=== PATIENT | female | born 1985 | race Caucasian/White ===

== ENCOUNTER 2018-01-13 15:34 | Emergency (ER) | payer MEDICAID ==
[~2018-01-13] VITALS: Ht 157.5 cm; Wt 138.6 kg
[~2018-01-13 15:34] MED LIST: CLIN300C85 PO
[2018-01-13 15:39] VITALS: BP 165/89
== END 2018-01-13 16:18 | disposition home or self-care (01) ==
LOC: ER 15:35
DX: O26.892 Other specified pregnancy related conditions, second trimester (principal); F15.10 Other stimulant abuse, uncomplicated; F11.10 Opioid abuse, uncomplicated; I10 Essential (primary) hypertension; G89.29 Other chronic pain; F17.200 Nicotine dependence, unspecified, uncomplicated; F12.90 Cannabis use, unspecified, uncomplicated; Z88.8 Allergy status to other drugs, medicaments and biological substances; Z79.2 Long term (current) use of antibiotics; Z3A.22 22 weeks gestation of pregnancy
CPT/HCPCS: 99281

== ENCOUNTER 2018-04-24 14:44 | Emergency (ER) | payer MEDICAID ==
[~2018-04-24] VITALS: Ht 157.5 cm; Wt 149.0 kg
[2018-04-24 14:58] VITALS: BP 173/104
[2018-04-24] MEDS ORDERED: BUPIVAcaine 0.5% W/EPI /PF 30ml vial IJ ONE (15:15)
[2018-04-24] MEDS ORDERED: amoxicillin 250mg capsule PO ONE (15:45)
[2018-04-24] MEDS ORDERED: AMOX-101 PO (15:46)
== END 2018-04-24 15:53 | disposition home or self-care (01) ==
LOC: ER 14:45
DX: O99.613 Diseases of the digestive system complicating pregnancy, third trimester (principal); S02.5XXD Fracture of tooth (traumatic), subsequent encounter for fracture with routine healing; K04.7 Periapical abscess without sinus; I10 Essential (primary) hypertension; G89.29 Other chronic pain; F12.90 Cannabis use, unspecified, uncomplicated; F15.90 Other stimulant use, unspecified, uncomplicated; F11.90 Opioid use, unspecified, uncomplicated; Z98.890 Other specified postprocedural states; Z88.8 Allergy status to other drugs, medicaments and biological substances; Z79.2 Long term (current) use of antibiotics; Z3A.36 36 weeks gestation of pregnancy; X58.XXXD Exposure to other specified factors, subsequent encounter
CPT/HCPCS: 64402; 99284

== ENCOUNTER 2022-09-12 19:37 | Emergency (ER) | payer MEDICAID ==
[~2022-09-12] VITALS: Ht 160 cm; Wt 178.6 kg
[~2022-09-12 19:37] MED LIST changes: +CLIN-97 PO; -CLIN300C85 PO
[2022-09-12 19:54] LABS: BASOPHILS # (AUTO) 0.1 X10'3 (0-0.2); BASOPHILS % (AUTO) 0.8 % (0-1); EOSINOPHILS # (AUTO) 0.1 X10'3 (0-0.9); HEMATOCRIT 40.5 % (35.0-45.0); HEMOGLOBIN 13.3 g/dl (12.0-16.0); LYMPHOCYTES # (AUTO) 4.2 X10'3 (1.1-4.8); LYMPHOCYTES % (AUTO) 37.9 % (21-51); MEAN CORPUSCULAR HEMOGLOBIN 26.5 PG (27.0-31.0); MEAN CORPUSCULAR HGB CONC 32.7 g/dL (33.0-36.5); MEAN CORPUSCULAR VOLUME 81.1 FL (78-98); MONOCYTES # (AUTO) 0.7 X10'3 (0-0.9); MONOCYTES % (AUTO) 6.3 % (2-12); NEUTROPHILS # (AUTO) 5.9 X10'3 (1.8-7.7); PLATELET COUNT 252 X10'3 (140-440); RED CELL DISTRIBUTION WIDTH 12.3 % (11.5-14.5)
[2022-09-12 20:07] LABS: ALANINE AMINOTRANSFERASE 55 U/L (12-78); ALBUMIN 3.7 G/DL (3.4-5.0); ALBUMIN/GLOBULIN RATIO 0.8 (1.1-1.5); ALKALINE PHOSPHATASE 77 IU/L (46-116); ANION GAP 5 (8-16); ASPARTATE AMINO TRANSFERASE 38 U/L (10-37); BILIRUBIN,TOTAL 0.4 MG/DL (0.1-1.0); BLOOD UREA NITROGEN 15 MG/DL (7-18); BUN/CREATININE RATIO 18.1 (10.0-20.0); CALCIUM 9.3 MG/DL (8.5-10.1); CHLORIDE 103 MMOL/L (99-107); CREATININE 0.83 MG/DL (0.40-0.90); GLUCOSE 105 MG/DL (70-104); POTASSIUM 4.1 MMOL/L (3.5-5.1); SODIUM 138 MMOL/L (135-145); TOTAL CARBON DIOXIDE 30.5 MMOL/L (24-32); TOTAL PROTEIN 8.5 G/DL (6.4-8.2); eGFR 77 ML/MIN
[2022-09-12 20:50] LABS: CLARITY,URINE SLIGHTLY CLOUDY (Clear); COLOR,URINE YELLOW (Yellow); GLUCOSE, URINE NEGATIVE (Neg); KETONES,URINE NEGATIVE (Neg); LEUKOCYTE ESTERASE ,URINE SMALL (Neg); NITRITES, URINE POSITIVE (Neg); OCCULT BLOOD,URINE MODERATE (Neg); PROTEIN,URINE 100 mg/dl (Neg); URINE HCG NEGATIVE (NEG); UROBILINOGEN,URINE 0.2 E.U/dL (0.2-1.0)
[2022-09-12 20:56] LABS: UA COLLECTION TYPE CLN CATCH MIDSTREAM
[2022-09-12 21:02] LABS: RBC,URINE 20-50 /HPF (0-2); WBC,URINE TNTC /HPF (0-4)
[2022-09-12 21:03] LABS: BACTERIA,URINE 2+ /HPF (Neg); MUCUS STRANDS FEW /LPF (Neg); SQUAMOUS EPITHELIAL CELL,UR FEW /LPF (FEW); TRANSITIONAL EPI CELLS,URINE FEW /HPF; WBC CLUMPS,URINE FEW /HPF (NEGATIVE)
[2022-09-12] MEDS ORDERED: cephalexin 500mg capsule PO ONE (21:15)
[2022-09-12] MEDS ORDERED: CEPH250T PO (21:29)
[2022-09-12 21:34] VITALS: BP 140/85
== END 2022-09-12 21:35 | disposition home or self-care (01) ==
LOC: ER 19:37
DX: N39.0 Urinary tract infection, site not specified (principal); F12.10 Cannabis abuse, uncomplicated; F15.10 Other stimulant abuse, uncomplicated; I10 Essential (primary) hypertension; F41.9 Anxiety disorder, unspecified; G89.29 Other chronic pain; Z88.6 Allergy status to analgesic agent; Z88.5 Allergy status to narcotic agent; Z79.899 Other long term (current) drug therapy
CPT/HCPCS: 36415; 80053; 81001; 81025; 83735; 83880; 84484; 85025; 87077; 87088; 87186; 93005; 99284

== ENCOUNTER 2022-11-16 12:33 | Emergency (ER) | payer MEDICAID ==
[~2022-11-16] VITALS: Ht 160 cm; Wt 182.0 kg
[2022-11-16 12:38] VITALS: BP 193/117
[2022-11-16] MEDS ORDERED: AMOX-580 PO (15:09)
[2022-11-16] MEDS ORDERED: HYDR-3973 PO (15:09)
== END 2022-11-16 15:25 | disposition home or self-care (01) ==
LOC: ER 12:33
DX: K04.7 Periapical abscess without sinus (principal); K08.89 Other specified disorders of teeth and supporting structures; I10 Essential (primary) hypertension; G89.29 Other chronic pain; M79.7 Fibromyalgia; F12.90 Cannabis use, unspecified, uncomplicated; F15.90 Other stimulant use, unspecified, uncomplicated; F11.90 Opioid use, unspecified, uncomplicated; Z98.891 History of uterine scar from previous surgery; Z88.8 Allergy status to other drugs, medicaments and biological substances; Z79.2 Long term (current) use of antibiotics; Z79.899 Other long term (current) drug therapy
CPT/HCPCS: 99283

== ENCOUNTER 2022-11-29 21:23 | Emergency (ER) | payer MEDICAID ==
[~2022-11-29] VITALS: Ht 160 cm; Wt 181.0 kg
[~2022-11-29 21:23] MED LIST changes: +AMOX-580 PO; +HYDR-3973 PO
[2022-11-29 22:15] VITALS: BP 136/92; PULSE 83; RESP 20; TEMP 99.9; O2SAT 95
== END 2022-11-30 01:07 | disposition home or self-care (01) ==
LOC: ER 21:24
DX: R20.0 Anesthesia of skin (principal); I10 Essential (primary) hypertension; F41.9 Anxiety disorder, unspecified; F12.10 Cannabis abuse, uncomplicated; F15.10 Other stimulant abuse, uncomplicated; F11.10 Opioid abuse, uncomplicated; Z88.6 Allergy status to analgesic agent; Z88.5 Allergy status to narcotic agent; Z79.899 Other long term (current) drug therapy
CPT/HCPCS: 99281

== ENCOUNTER 2022-12-10 04:12 | Emergency (ER) | payer MEDICAID ==
[~2022-12-10] VITALS: Ht 160 cm; Wt 180.4 kg
[2022-12-10 04:31] VITALS: BP 119/75; PULSE 82; RESP 16; TEMP 97.8; O2SAT 94
[2022-12-10 05:18] LABS: BASOPHILS % (AUTO) 0.3 % (0-1); EOSINOPHILS # (AUTO) 0.1 X10'3 (0-0.9); EOSINOPHILS % (AUTO) 1.7 % (0-6); HEMATOCRIT 36.3 % (35.0-45.0); HEMOGLOBIN 11.9 g/dl (12.0-16.0); LYMPHOCYTES # (AUTO) 3.8 X10'3 (1.1-4.8); LYMPHOCYTES % (AUTO) 43.7 % (21-51); MEAN CORPUSCULAR HEMOGLOBIN 26.2 PG (27.0-31.0); MEAN CORPUSCULAR HGB CONC 32.8 g/dL (33.0-36.5); MEAN CORPUSCULAR VOLUME 79.8 FL (78-98); MEAN PLATELET VOLUME 7.2 FL (7.4-10.4); MONOCYTES # (AUTO) 0.6 X10'3 (0-0.9); MONOCYTES % (AUTO) 6.9 % (2-12); NEUTROPHILS # (AUTO) 4.1 X10'3 (1.8-7.7); NEUTROPHILS % (AUTO) 47.4 % (42-75); PLATELET COUNT 231 X10'3 (140-440); RED BLOOD COUNT 4.56 X10'6 (4.20-5.60); RED CELL DISTRIBUTION WIDTH 14.1 % (11.5-14.5); WHITE BLOOD COUNT 8.6 X10'3 (4.5-11.0)
[2022-12-10 05:35] LABS: ALANINE AMINOTRANSFERASE 37 U/L (12-78); ALBUMIN 3.2 G/DL (3.4-5.0); ALBUMIN/GLOBULIN RATIO 0.8 (1.1-1.5); ALKALINE PHOSPHATASE 70 IU/L (46-116); ANION GAP 10 (8-16); ASPARTATE AMINO TRANSFERASE 23 U/L (10-37); BILIRUBIN,TOTAL 0.3 MG/DL (0.1-1.0); BLOOD UREA NITROGEN 24 MG/DL (7-18); BUN/CREATININE RATIO 29.3 (10.0-20.0); CALCIUM 9.3 MG/DL (8.5-10.1); CHLORIDE 102 MMOL/L (99-107); CREATININE 0.82 MG/DL (0.40-0.90); GLUCOSE 151 MG/DL (70-104); POTASSIUM 3.6 MMOL/L (3.5-5.1); SODIUM 140 MMOL/L (135-145); TOTAL CARBON DIOXIDE 27.7 MMOL/L (24-32); TOTAL PROTEIN 7.4 G/DL (6.4-8.2); eGFR 78 ML/MIN
== END 2022-12-10 12:18 | disposition left against medical advice (07) ==
LOC: ER 04:13
DX: R07.89 Other chest pain (principal); Z53.21 Procedure and treatment not carried out due to patient leaving prior to being seen by health care provider
CPT/HCPCS: 36415; 80053; 83880; 84484; 85025; 93005; 99281

== ENCOUNTER 2023-01-15 19:50 | Emergency (ER) | payer MEDICAID ==
[~2023-01-15] VITALS: Ht 160 cm; Wt 181.8 kg
[~2023-01-15 19:50] MED LIST changes: -AMOX-580 PO; -HYDR-3973 PO
[2023-01-15 19:51] VITALS: BP 139/70; PULSE 72; RESP 18; TEMP 98.3; O2SAT 93
[2023-01-15 20:48] LABS: BASOPHILS % (AUTO) 0.3 % (0-1); EOSINOPHILS # (AUTO) 0.2 X10'3 (0-0.9); EOSINOPHILS % (AUTO) 1.8 % (0-6); HEMATOCRIT 38.9 % (35.0-45.0); HEMOGLOBIN 12.5 g/dl (12.0-16.0); LYMPHOCYTES % (AUTO) 41.6 % (21-51); MEAN CORPUSCULAR HEMOGLOBIN 26.2 PG (27.0-31.0); MEAN CORPUSCULAR HGB CONC 32.2 g/dL (33.0-36.5); MEAN CORPUSCULAR VOLUME 81.3 FL (78-98); MEAN PLATELET VOLUME 7.1 FL (7.4-10.4); MONOCYTES # (AUTO) 0.7 X10'3 (0-0.9); MONOCYTES % (AUTO) 7.2 % (2-12); NEUTROPHILS # (AUTO) 4.7 X10'3 (1.8-7.7); NEUTROPHILS % (AUTO) 49.1 % (42-75); PLATELET COUNT 263 X10'3 (140-440); RED BLOOD COUNT 4.79 X10'6 (4.20-5.60); RED CELL DISTRIBUTION WIDTH 15.1 % (11.5-14.5); WHITE BLOOD COUNT 9.6 X10'3 (4.5-11.0)
[2023-01-15 20:50] LABS: ALANINE AMINOTRANSFERASE 37 U/L (12-78); ALBUMIN 3.5 G/DL (3.4-5.0); ALBUMIN/GLOBULIN RATIO 0.8 (1.1-1.5); ALKALINE PHOSPHATASE 73 IU/L (46-116); ANION GAP 7 (8-16); ASPARTATE AMINO TRANSFERASE 27 U/L (10-37); BILIRUBIN,TOTAL 0.5 MG/DL (0.1-1.0); BLOOD UREA NITROGEN 14 MG/DL (7-18); BUN/CREATININE RATIO 16.9 (10.0-20.0); CALCIUM 9.5 MG/DL (8.5-10.1); CHLORIDE 104 MMOL/L (99-107); CREATININE 0.83 MG/DL (0.40-0.90); GLUCOSE 98 MG/DL (70-104); POTASSIUM 3.8 MMOL/L (3.5-5.1); SODIUM 140 MMOL/L (135-145); TOTAL CARBON DIOXIDE 29.4 MMOL/L (24-32); TOTAL PROTEIN 7.9 G/DL (6.4-8.2); eCRCL 75 ML/MIN; eGFR 77 ML/MIN
[2023-01-15 20:58] LABS: PRO BRAIN NATRIURETIC PEPTIDE 81 PG/ML (0-125)
--- NOTE | 2023-01-15 22:20 | NUR ---
iv dc'd pt being discharged dressing applied
== END 2023-01-15 22:21 | disposition home or self-care (01) ==
LOC: ER 19:51
DX: I10 Essential (primary) hypertension (principal); F31.9 Bipolar disorder, unspecified; F12.90 Cannabis use, unspecified, uncomplicated; F15.90 Other stimulant use, unspecified, uncomplicated; Z88.6 Allergy status to analgesic agent; Z88.5 Allergy status to narcotic agent; Z79.2 Long term (current) use of antibiotics
CPT/HCPCS: 36415; 71045; 80053; 83880; 84484; 85025; 93005; 99285

== ENCOUNTER 2023-07-28 12:34 | Emergency (ER) | payer MEDICAID ==
[~2023-07-28] VITALS: Ht 160 cm; Wt 173.4 kg
[2023-07-28 12:36] VITALS: BP 173/79; PULSE 67; RESP 16; TEMP 98.2; O2SAT 96
[2023-07-28] MEDS ORDERED: CEFD300C3 PO (13:32)
== END 2023-07-28 13:43 | disposition home or self-care (01) ==
LOC: ER 12:34
DX: H66.002 Acute suppurative otitis media without spontaneous rupture of ear drum, left ear (principal); I10 Essential (primary) hypertension; G89.29 Other chronic pain; F31.9 Bipolar disorder, unspecified; Z88.6 Allergy status to analgesic agent; Z79.899 Other long term (current) drug therapy; Z88.5 Allergy status to narcotic agent
CPT/HCPCS: 99283

== ENCOUNTER 2023-07-29 14:44 | Emergency (ER) | payer MEDICAID ==
[~2023-07-29] VITALS: Ht 160 cm; Wt 173.0 kg
[~2023-07-29 14:44] MED LIST changes: +CEFD300C3 PO
[2023-07-29 15:08] VITALS: BP 182/74; PULSE 67; RESP 18; TEMP 98; O2SAT 98
[2023-07-29] MEDS: ketorolac tromethamine 15mg/ml inj. IM ONE (16:22)
== END 2023-07-29 16:47 | disposition home or self-care (01) ==
LOC: ER 14:45
DX: R51.9 Headache, unspecified (principal); R68.84 Jaw pain; I10 Essential (primary) hypertension; F31.9 Bipolar disorder, unspecified; F12.10 Cannabis abuse, uncomplicated; F15.10 Other stimulant abuse, uncomplicated; Z88.6 Allergy status to analgesic agent; Z88.5 Allergy status to narcotic agent; Z79.899 Other long term (current) drug therapy
CPT/HCPCS: 96372; 99283; J1885

== ENCOUNTER 2023-08-02 12:09 | Emergency (ER) | payer MEDICAID ==
[~2023-08-02] VITALS: Ht 160 cm; Wt 175.9 kg
[2023-08-02 12:10] VITALS: TEMP 98.6
[2023-08-02 12:25] VITALS: BP 161/89; PULSE 65; RESP 18; O2SAT 97
== END 2023-08-02 12:57 | disposition home or self-care (01) ==
LOC: ER 12:10
DX: I10 Essential (primary) hypertension (principal); F12.90 Cannabis use, unspecified, uncomplicated; F15.90 Other stimulant use, unspecified, uncomplicated; Z88.6 Allergy status to analgesic agent; Z88.5 Allergy status to narcotic agent; Z88.8 Allergy status to other drugs, medicaments and biological substances; Z79.2 Long term (current) use of antibiotics
CPT/HCPCS: 93005; 99283

== ENCOUNTER 2023-09-24 13:51 | Emergency (ER) | payer MEDICAID ==
[~2023-09-24] VITALS: Ht 157.5 cm; Wt 175.0 kg
[~2023-09-24 13:51] MED LIST changes: -CEFD300C3 PO
[2023-09-24 14:06] VITALS: BP 143/68; PULSE 77; O2SAT 97
[2023-09-24 14:25] LABS: BASOPHILS % (AUTO) 0.2 % (0-1); EOSINOPHILS # (AUTO) 0.1 X10'3 (0-0.9); EOSINOPHILS % (AUTO) 1.2 % (0-6); HEMATOCRIT 40.1 % (35.0-45.0); HEMOGLOBIN 13.2 g/dl (12.0-16.0); LYMPHOCYTES # (AUTO) 3.7 X10'3 (1.1-4.8); LYMPHOCYTES % (AUTO) 36.6 % (21-51); MEAN CORPUSCULAR HEMOGLOBIN 26.9 PG (27.0-31.0); MEAN CORPUSCULAR HGB CONC 32.9 g/dL (33.0-36.5); MEAN CORPUSCULAR VOLUME 81.9 FL (78-98); MEAN PLATELET VOLUME 7.1 FL (7.4-10.4); MONOCYTES # (AUTO) 0.5 X10'3 (0-0.9); MONOCYTES % (AUTO) 5.2 % (2-12); NEUTROPHILS # (AUTO) 5.7 X10'3 (1.8-7.7); NEUTROPHILS % (AUTO) 56.8 % (42-75); PLATELET COUNT 279 X10'3 (140-440); RED CELL DISTRIBUTION WIDTH 13.3 % (11.5-14.5)
[2023-09-24 14:35] LABS: ALANINE AMINOTRANSFERASE 26 U/L (12-78); ALBUMIN 3.7 G/DL (3.4-5.0); ALBUMIN/GLOBULIN RATIO 0.8 (1.1-1.5); ALKALINE PHOSPHATASE 70 IU/L (46-116); ANION GAP 3 (8-16); ASPARTATE AMINO TRANSFERASE 16 U/L (10-37); BILIRUBIN,TOTAL 0.5 MG/DL (0.1-1.0); BLOOD UREA NITROGEN 17 MG/DL (7-18); CALCIUM 9.3 MG/DL (8.5-10.1); CHLORIDE 102 MMOL/L (99-107); CREATININE 0.74 MG/DL (0.40-0.90); GLUCOSE 100 MG/DL (70-104); POTASSIUM 3.9 MMOL/L (3.5-5.1); SODIUM 138 MMOL/L (135-145); TOTAL CARBON DIOXIDE 32.8 MMOL/L (24-32); TOTAL PROTEIN 8.3 G/DL (6.4-8.2); eCRCL 80 ML/MIN; eGFR 87 ML/MIN
[2023-09-24 14:42] LABS: PRO BRAIN NATRIURETIC PEPTIDE 78 PG/ML (0-125)
[2023-09-24 16:02] VITALS: RESP 16
== END 2023-09-24 16:09 | disposition home or self-care (01) ==
LOC: ER 13:52
DX: R00.2 Palpitations (principal); F41.9 Anxiety disorder, unspecified; I10 Essential (primary) hypertension; F12.90 Cannabis use, unspecified, uncomplicated; F15.10 Other stimulant abuse, uncomplicated; Z88.5 Allergy status to narcotic agent; Z88.6 Allergy status to analgesic agent; Z88.8 Allergy status to other drugs, medicaments and biological substances
CPT/HCPCS: 36415; 80053; 83880; 84484; 85025; 93005; 99284

== ENCOUNTER 2023-10-14 09:42 | Emergency (ER) | payer MEDICAID ==
[~2023-10-14] VITALS: Ht 157.5 cm; Wt 392.0 kg
[2023-10-14 10:01] VITALS: TEMP 98.3
[2023-10-14 10:22] LABS: BASOPHILS % (AUTO) 0.6 % (0-1); EOSINOPHILS # (AUTO) 0.1 X10'3 (0-0.9); EOSINOPHILS % (AUTO) 1.5 % (0-6); HEMATOCRIT 37.8 % (35.0-45.0); HEMOGLOBIN 12.5 g/dl (12.0-16.0); LYMPHOCYTES # (AUTO) 2.6 X10'3 (1.1-4.8); LYMPHOCYTES % (AUTO) 35.6 % (21-51); MEAN CORPUSCULAR HEMOGLOBIN 27.2 PG (27.0-31.0); MEAN CORPUSCULAR HGB CONC 33.1 g/dL (33.0-36.5); MEAN CORPUSCULAR VOLUME 82.1 FL (78-98); MEAN PLATELET VOLUME 6.8 FL (7.4-10.4); MONOCYTES # (AUTO) 0.4 X10'3 (0-0.9); MONOCYTES % (AUTO) 4.8 % (2-12); NEUTROPHILS # (AUTO) 4.2 X10'3 (1.8-7.7); NEUTROPHILS % (AUTO) 57.5 % (42-75); PLATELET COUNT 248 X10'3 (140-440); RED CELL DISTRIBUTION WIDTH 13.1 % (11.5-14.5); WHITE BLOOD COUNT 7.3 X10'3 (4.5-11.0)
[2023-10-14 10:48] LABS: ALBUMIN 3.3 G/DL (3.4-5.0); ANION GAP 6 (8-16); BLOOD UREA NITROGEN 10 MG/DL (7-18); CALCIUM 8.8 MG/DL (8.5-10.1); CHLORIDE 104 MMOL/L (99-107); CREATININE 0.77 MG/DL (0.40-0.90); GLUCOSE 107 MG/DL (70-104); POTASSIUM 4.5 MMOL/L (3.5-5.1); PRO BRAIN NATRIURETIC PEPTIDE 55 PG/ML (0-125); SODIUM 139 MMOL/L (135-145); TOTAL CARBON DIOXIDE 28.6 MMOL/L (24-32); eCRCL 77 ML/MIN; eGFR 83 ML/MIN
[2023-10-14 11:51] LABS: D-DIMER 0.27 MG/L FEU (0-0.50)
[2023-10-14 12:10] VITALS: PULSE 61; RESP 20; O2SAT 95
[2023-10-14] MEDS: ipratropium/albuterol 3ml nebule NEB ONE (12:10)
[2023-10-14 12:15] VITALS: PULSE 64; RESP 21; O2SAT 96
[2023-10-14 12:25] VITALS: BP 121/81; PULSE 67; RESP 13; O2SAT 95
[2023-10-14] MEDS ORDERED: ALBU18HF2 INH (12:26)
[2023-10-14] MEDS ORDERED: PRED20TA PO (12:26)
== END 2023-10-14 12:39 | disposition home or self-care (01) ==
LOC: ER 09:43
DX: J40 Bronchitis, not specified as acute or chronic (principal); I10 Essential (primary) hypertension; F12.90 Cannabis use, unspecified, uncomplicated; F15.90 Other stimulant use, unspecified, uncomplicated; Z88.6 Allergy status to analgesic agent; Z88.5 Allergy status to narcotic agent; Z88.8 Allergy status to other drugs, medicaments and biological substances; Z79.2 Long term (current) use of antibiotics; Z98.890 Other specified postprocedural states
CPT/HCPCS: 36415; 71045; 80048; 83880; 84145; 84484; 85025; 85379; 93005; 94640; 99285

== ENCOUNTER 2023-10-31 19:05 | Emergency (ER) | payer MEDICAID ==
[~2023-10-31] VITALS: Ht 157.5 cm; Wt 176.4 kg
[~2023-10-31 19:05] MED LIST changes: +ALBU18HF2 INH; +PRED20TA PO
[2023-10-31 19:22] LABS: BASOPHILS % (AUTO) 0.4 % (0-1); EOSINOPHILS # (AUTO) 0.2 X10'3 (0-0.9); EOSINOPHILS % (AUTO) 1.7 % (0-6); HEMATOCRIT 40.6 % (35.0-45.0); HEMOGLOBIN 13.3 g/dl (12.0-16.0); LYMPHOCYTES # (AUTO) 4.4 X10'3 (1.1-4.8); LYMPHOCYTES % (AUTO) 40.9 % (21-51); MEAN CORPUSCULAR HEMOGLOBIN 26.7 PG (27.0-31.0); MEAN CORPUSCULAR HGB CONC 32.7 g/dL (33.0-36.5); MEAN CORPUSCULAR VOLUME 81.7 FL (78-98); MEAN PLATELET VOLUME 6.7 FL (7.4-10.4); MONOCYTES # (AUTO) 0.7 X10'3 (0-0.9); MONOCYTES % (AUTO) 6.7 % (2-12); NEUTROPHILS # (AUTO) 5.5 X10'3 (1.8-7.7); NEUTROPHILS % (AUTO) 50.3 % (42-75); PLATELET COUNT 273 X10'3 (140-440); RED BLOOD COUNT 4.96 X10'6 (4.20-5.60); RED CELL DISTRIBUTION WIDTH 12.8 % (11.5-14.5); WHITE BLOOD COUNT 10.9 X10'3 (4.5-11.0)
[2023-10-31 19:46] LABS: ALBUMIN 3.6 G/DL (3.4-5.0); ANION GAP 7 (8-16); BLOOD UREA NITROGEN 17 MG/DL (7-18); BUN/CREATININE RATIO 22.1 (10.0-20.0); CALCIUM 9.3 MG/DL (8.5-10.1); CHLORIDE 102 MMOL/L (99-107); CREATININE 0.77 MG/DL (0.40-0.90); GLUCOSE 114 MG/DL (70-104); POTASSIUM 4.2 MMOL/L (3.5-5.1); PRO BRAIN NATRIURETIC PEPTIDE 43 PG/ML (0-125); SODIUM 138 MMOL/L (135-145); eCRCL 77 ML/MIN; eGFR 83 ML/MIN
[2023-10-31 21:18] VITALS: BP 121/66; PULSE 77; RESP 18; O2SAT 97
[2023-10-31 22:37] VITALS: TEMP 97.8
== END 2023-10-31 22:41 | disposition home or self-care (01) ==
LOC: ER 19:06
DX: R00.2 Palpitations (principal); I10 Essential (primary) hypertension; F31.9 Bipolar disorder, unspecified; F12.90 Cannabis use, unspecified, uncomplicated; F15.90 Other stimulant use, unspecified, uncomplicated; Z88.6 Allergy status to analgesic agent; Z88.5 Allergy status to narcotic agent; Z88.8 Allergy status to other drugs, medicaments and biological substances; Z79.2 Long term (current) use of antibiotics; Z79.899 Other long term (current) drug therapy; Z98.890 Other specified postprocedural states
CPT/HCPCS: 36415; 71045; 80048; 83880; 84484; 85025; 93005; 99285

== ENCOUNTER 2023-12-15 01:21 | Emergency (ER) | payer MEDICAID ==
[~2023-12-15] VITALS: Ht 160 cm; Wt 175.0 kg
[~2023-12-15 01:21] MED LIST changes: -PRED20TA PO
[2023-12-15] MEDS: cloNIDine 0.1 mg tablet PO STA (01:52)
[2023-12-15 02:07] LABS: ALANINE AMINOTRANSFERASE 35 U/L (12-78); ALBUMIN 3.6 G/DL (3.4-5.0); ALBUMIN/GLOBULIN RATIO 0.8 (1.1-1.5); ALKALINE PHOSPHATASE 71 IU/L (46-116); ANION GAP 9 (8-16); ASPARTATE AMINO TRANSFERASE 23 U/L (10-37); BILIRUBIN,TOTAL 0.5 MG/DL (0.1-1.0); BLOOD UREA NITROGEN 19 MG/DL (7-18); BUN/CREATININE RATIO 20.9 (10.0-20.0); CALCIUM 9.1 MG/DL (8.5-10.1); CHLORIDE 101 MMOL/L (99-107); CREATININE 0.91 MG/DL (0.40-0.90); GLUCOSE 136 MG/DL (70-104); POTASSIUM 3.7 MMOL/L (3.5-5.1); SODIUM 139 MMOL/L (135-145); TOTAL CARBON DIOXIDE 29.3 MMOL/L (24-32); TOTAL PROTEIN 8.2 G/DL (6.4-8.2); eCRCL 68 ML/MIN; eGFR 68 ML/MIN
[2023-12-15 02:14] LABS: PRO BRAIN NATRIURETIC PEPTIDE < 30 PG/ML (0-125)
[2023-12-15] MEDS: ipratropium/albuterol 3ml nebule NEB ONE (02:16)
[2023-12-15 02:20] VITALS: PULSE 81; RESP 16; O2SAT 97
[2023-12-15 02:27] LABS: BASOPHILS % (AUTO) 0.2 % (0-1); EOSINOPHILS # (AUTO) 0.1 X10'3 (0-0.9); EOSINOPHILS % (AUTO) 1.4 % (0-6); HEMATOCRIT 41.4 % (35.0-45.0); HEMOGLOBIN 13.3 g/dl (12.0-16.0); LYMPHOCYTES # (AUTO) 4.5 X10'3 (1.1-4.8); LYMPHOCYTES % (AUTO) 43.2 % (21-51); MEAN CORPUSCULAR HEMOGLOBIN 26.5 PG (27.0-31.0); MEAN CORPUSCULAR HGB CONC 32.1 g/dL (33.0-36.5); MEAN CORPUSCULAR VOLUME 82.6 FL (78-98); MEAN PLATELET VOLUME 7.7 FL (7.4-10.4); MONOCYTES # (AUTO) 0.7 X10'3 (0-0.9); MONOCYTES % (AUTO) 6.9 % (2-12); NEUTROPHILS % (AUTO) 48.3 % (42-75); PLATELET COUNT 269 X10'3 (140-440); RED BLOOD COUNT 5.01 X10'6 (4.20-5.60); RED CELL DISTRIBUTION WIDTH 12.8 % (11.5-14.5); WHITE BLOOD COUNT 10.3 X10'3 (4.5-11.0)
[2023-12-15 02:31] VITALS: PULSE 75; RESP 17; O2SAT 94
[2023-12-15 03:58] VITALS: BP 105/52; PULSE 84; RESP 16; O2SAT 96
== END 2023-12-15 03:52 | disposition home or self-care (01) ==
LOC: ER 01:22
DX: J40 Bronchitis, not specified as acute or chronic (principal); R07.89 Other chest pain; I10 Essential (primary) hypertension; F41.9 Anxiety disorder, unspecified; F15.90 Other stimulant use, unspecified, uncomplicated; F12.90 Cannabis use, unspecified, uncomplicated; Z88.6 Allergy status to analgesic agent; Z88.5 Allergy status to narcotic agent; Z79.2 Long term (current) use of antibiotics; Z98.890 Other specified postprocedural states
CPT/HCPCS: 36415; 71045; 80053; 83880; 84484; 85025; 93005; 94640; 94760; 99285

== ENCOUNTER 2023-12-30 19:58 | Emergency (ER) | payer MEDICAID ==
[~2023-12-30] VITALS: Ht 157.5 cm; Wt 174.6 kg
[2023-12-30 20:31] LABS: BASOPHILS % (AUTO) 0.4 % (0-1); EOSINOPHILS # (AUTO) 0.1 X10'3 (0-0.9); HEMATOCRIT 39.6 % (35.0-45.0); HEMOGLOBIN 12.9 g/dl (12.0-16.0); LYMPHOCYTES # (AUTO) 3.9 X10'3 (1.1-4.8); LYMPHOCYTES % (AUTO) 40.7 % (21-51); MEAN CORPUSCULAR HEMOGLOBIN 26.6 PG (27.0-31.0); MEAN CORPUSCULAR HGB CONC 32.6 g/dL (33.0-36.5); MEAN CORPUSCULAR VOLUME 81.6 FL (78-98); MEAN PLATELET VOLUME 6.8 FL (7.4-10.4); MONOCYTES # (AUTO) 0.6 X10'3 (0-0.9); MONOCYTES % (AUTO) 6.2 % (2-12); NEUTROPHILS % (AUTO) 51.7 % (42-75); PLATELET COUNT 244 X10'3 (140-440); RED BLOOD COUNT 4.85 X10'6 (4.20-5.60); RED CELL DISTRIBUTION WIDTH 13.5 % (11.5-14.5); WHITE BLOOD COUNT 9.7 X10'3 (4.5-11.0)
[2023-12-30 20:53] LABS: ALBUMIN 3.7 G/DL (3.4-5.0); ANION GAP 5 (8-16); BLOOD UREA NITROGEN 18 MG/DL (7-18); BUN/CREATININE RATIO 23.7 (10.0-20.0); CALCIUM 9.6 MG/DL (8.5-10.1); CHLORIDE 105 MMOL/L (99-107); CREATININE 0.76 MG/DL (0.40-0.90); GLUCOSE 89 MG/DL (70-104); POTASSIUM 4.2 MMOL/L (3.5-5.1); PRO BRAIN NATRIURETIC PEPTIDE 60 PG/ML (0-125); SODIUM 141 MMOL/L (135-145); TOTAL CARBON DIOXIDE 30.7 MMOL/L (24-32); eCRCL 78 ML/MIN; eGFR 84 ML/MIN
[2023-12-30 21:07] VITALS: BP 162/95; PULSE 80; RESP 18; TEMP 98.4; O2SAT 98
== END 2023-12-30 21:43 | disposition home or self-care (01) ==
LOC: ER 19:59
DX: R07.89 Other chest pain (principal); F12.90 Cannabis use, unspecified, uncomplicated; F15.90 Other stimulant use, unspecified, uncomplicated; I10 Essential (primary) hypertension; G89.29 Other chronic pain; M54.9 Dorsalgia, unspecified; F41.9 Anxiety disorder, unspecified; Z88.5 Allergy status to narcotic agent; Z88.6 Allergy status to analgesic agent; Z79.2 Long term (current) use of antibiotics
CPT/HCPCS: 36415; 71045; 80048; 83880; 84484; 85025; 93005; 99285

== ENCOUNTER 2024-03-13 20:14 | Emergency (ER) | payer MEDICAID ==
[~2024-03-13] VITALS: Ht 157.5 cm; Wt 173.6 kg
[2024-03-13 20:19] VITALS: TEMP 98.9
[2024-03-13 20:37] LABS: BASOPHILS % (AUTO) 0.2 % (0-1); EOSINOPHILS # (AUTO) 0.2 X10'3 (0-0.9); EOSINOPHILS % (AUTO) 1.5 % (0-6); HEMATOCRIT 38.9 % (35.0-45.0); HEMOGLOBIN 12.6 g/dl (12.0-16.0); LYMPHOCYTES # (AUTO) 4.9 X10'3 (1.1-4.8); LYMPHOCYTES % (AUTO) 44.9 % (21-51); MEAN CORPUSCULAR HEMOGLOBIN 26.7 PG (27.0-31.0); MEAN CORPUSCULAR HGB CONC 32.5 g/dL (33.0-36.5); MEAN CORPUSCULAR VOLUME 82.3 FL (78-98); MEAN PLATELET VOLUME 6.9 FL (7.4-10.4); MONOCYTES # (AUTO) 0.7 X10'3 (0-0.9); MONOCYTES % (AUTO) 6.3 % (2-12); NEUTROPHILS # (AUTO) 5.1 X10'3 (1.8-7.7); NEUTROPHILS % (AUTO) 47.1 % (42-75); PLATELET COUNT 252 X10'3 (140-440); RED BLOOD COUNT 4.73 X10'6 (4.20-5.60); RED CELL DISTRIBUTION WIDTH 13.9 % (11.5-14.5); WHITE BLOOD COUNT 10.9 X10'3 (4.5-11.0)
[2024-03-13 20:53] LABS: ALANINE AMINOTRANSFERASE 26 U/L (12-78); ALBUMIN 3.5 G/DL (3.4-5.0); ALBUMIN/GLOBULIN RATIO 0.8 (1.1-1.5); ALKALINE PHOSPHATASE 76 IU/L (46-116); ANION GAP 5 (8-16); ASPARTATE AMINO TRANSFERASE 18 U/L (10-37); BILIRUBIN,TOTAL 0.4 MG/DL (0.1-1.0); BLOOD UREA NITROGEN 15 MG/DL (7-18); BUN/CREATININE RATIO 18.1 (10.0-20.0); CALCIUM 9.2 MG/DL (8.5-10.1); CHLORIDE 104 MMOL/L (99-107); CREATININE 0.83 MG/DL (0.40-0.90); GLUCOSE 103 MG/DL (70-104); POTASSIUM 3.8 MMOL/L (3.5-5.1); SODIUM 141 MMOL/L (135-145); TOTAL CARBON DIOXIDE 31.6 MMOL/L (24-32); TOTAL PROTEIN 7.9 G/DL (6.4-8.2); eCRCL 71 ML/MIN; eGFR 76 ML/MIN
[2024-03-13 21:02] LABS: PRO BRAIN NATRIURETIC PEPTIDE 88 PG/ML (0-125)
[2024-03-14 00:59] VITALS: BP 174/96; PULSE 69; RESP 15; O2SAT 96
== END 2024-03-14 01:03 | disposition home or self-care (01) ==
LOC: ER 20:15
DX: R00.2 Palpitations (principal); G89.29 Other chronic pain; I10 Essential (primary) hypertension; F41.9 Anxiety disorder, unspecified; F31.9 Bipolar disorder, unspecified; M79.7 Fibromyalgia; F12.90 Cannabis use, unspecified, uncomplicated; F15.90 Other stimulant use, unspecified, uncomplicated; F19.90 Other psychoactive substance use, unspecified, uncomplicated; Z88.8 Allergy status to other drugs, medicaments and biological substances; Z88.5 Allergy status to narcotic agent
CPT/HCPCS: 36415; 71045; 80053; 83735; 83880; 84484; 85025; 93005; 99285

== ENCOUNTER 2024-04-15 06:37 | Emergency (ER) | payer MEDICAID ==
[~2024-04-15] VITALS: Ht 157.5 cm; Wt 166.8 kg
[2024-04-15 06:58] VITALS: BP 149/93; PULSE 62; RESP 15; O2SAT 95
[2024-04-15 08:42] VITALS: TEMP 97.4
== END 2024-04-15 07:55 | disposition left against medical advice (07) ==
LOC: ER 06:38
DX: I10 Essential (primary) hypertension (principal); F41.9 Anxiety disorder, unspecified; F31.9 Bipolar disorder, unspecified; G89.29 Other chronic pain; M79.7 Fibromyalgia; F12.90 Cannabis use, unspecified, uncomplicated; F15.90 Other stimulant use, unspecified, uncomplicated; F11.90 Opioid use, unspecified, uncomplicated; Z88.8 Allergy status to other drugs, medicaments and biological substances; Z88.5 Allergy status to narcotic agent; Z98.890 Other specified postprocedural states
CPT/HCPCS: 99281

== ENCOUNTER 2024-08-12 11:34 | Emergency (ER) | payer MEDICAID ==
[~2024-08-12] VITALS: Ht 162.6 cm; Wt 175.0 kg
[2024-08-12 11:40] VITALS: BP 172/85; PULSE 83; RESP 18; TEMP 97.8; O2SAT 83
[2024-08-12] MEDS ORDERED: PRED20TA PO (11:44)
[2024-08-12] MEDS: ketorolac trometh 30MG/ML vial 30 MG/ML VIAL IM ONE (11:54)
[2024-08-12] MEDS: dexamethasone sod phosphate 10mg/ml inj IM STA (11:54)
== END 2024-08-12 11:55 | disposition home or self-care (01) ==
LOC: ER 11:35
DX: R20.0 Anesthesia of skin (principal); R20.2 Paresthesia of skin; Z88.5 Allergy status to narcotic agent; Z88.8 Allergy status to other drugs, medicaments and biological substances
CPT/HCPCS: 29260; 96372; 99284; J1100; J1885

== ENCOUNTER 2024-09-17 20:19 | Emergency (ER) | payer MEDICAID ==
[~2024-09-17] VITALS: Ht 157.5 cm; Wt 169.2 kg
[2024-09-17 20:35] VITALS: BP 181/93; PULSE 65; RESP 18; TEMP 97.4; O2SAT 96
--- NOTE | 2024-09-17 23:33 | Physician Documentation ---
History of Present Illness ~ Chief Complaint: Post-operative complication Stated Complaint: POST OP COMPLICATIONS Time Seen by MD: 23:31 [facility] Tetanus within 5 years: Yes Medication Reconciliation Allergies: Coded Allergies: acetaminophen (Verified Allergy, Unknown, ITCHING, 09/17/24) hydrocodone (Verified Allergy, Unknown, ITCHING, 09/17/24) gabapentin (Verified Adverse Reaction, Unknown, TWITCHING, 09/17/24) Scheduled Clindamycin HCL* (Clindamycin HCL*), 1 CAP PO Q6H Scheduled PRN Albuterol Sulfate (Ventolin Hfa), 2 PUFFS INH Q4HPRN PRN for wheezing Past Medical History Past Medical History: No Pertinent History, *CARDIOVASCULAR*, Hypertension, Chronic Pain, Fibromyalgia, Anxiety, Bipolar Past Surgical History: Alcohol Use: None Drug Use: marijuana, methamphetamine, heroin Lives In: Home Physical Exam Vital Signs: Temperature: 97.4, Source: Temporal, Heart Rate: 65, Respiratory Rate: 18, BP: 181/93, Pulse Oximetry: 96, Weight: 169.250 Oxygen Flow Rate: 0 Progress Results/Orders Results/Orders Vital Signs 09/17/24 20:35 Temp 97.4 Pulse 65 Resp 18 B/P (MAP) 181/93 Pulse Ox 96 O2 Flow Rate 0 Departure Referrals: NO PRIMARY CARE PROVIDER (PCP) BRIAN JC MD September 17, 2024 23:33
== END 2024-09-17 23:45 | disposition left against medical advice (07) ==
LOC: ER 20:20
DX: R20.0 Anesthesia of skin (principal); Z53.21 Procedure and treatment not carried out due to patient leaving prior to being seen by health care provider; Z88.8 Allergy status to other drugs, medicaments and biological substances; Z88.5 Allergy status to narcotic agent

== ENCOUNTER 2024-12-17 14:10 | Emergency (ER) | payer MEDICAID ==
[~2024-12-17] VITALS: Ht 157.5 cm; Wt 142.1 kg
[~2024-12-17 14:10] MED LIST changes: +CLIN-224 PO; -CLIN-97 PO
[2024-12-17 14:43] LABS: MEAN PLATELET VOLUME 7.6 FL (7.4-10.4); RED CELL DISTRIBUTION WIDTH 14.6 % (11.5-14.5)
--- NOTE | 2024-12-17 14:45 | RADIOLOGY REPORT ---
AP portable chest CLINICAL INDICATION: CP FINDINGS: Heart size is normal. No infiltrates or effusions. No bony thoracic abnormalities. IMPRESSION: 1. Normal chest x-ray.
[2024-12-17 14:58] LABS: CREATININE 0.56 MG/DL (0.40-0.90); TOTAL CARBON DIOXIDE 30.6 MMOL/L (24-32); eCRCL 105 ML/MIN; eGFR > 90 ML/MIN
[2024-12-17 15:08] LABS: PRO BRAIN NATRIURETIC PEPTIDE 245 PG/ML (0-125)
[2024-12-17 15:56] LABS: LEUKOCYTE ESTERASE ,URINE NEGATIVE (Neg); NITRITES, URINE NEGATIVE (Neg); OCCULT BLOOD,URINE MODERATE (Neg)
[2024-12-17 15:57] LABS: URINE HCG NEGATIVE (NEG)
--- NOTE | 2024-12-17 16:01 | Physician Documentation ---
History of Present Illness ~ Chief Complaint: Dizziness Stated Complaint: DIZZINESS Time Seen by MD: 15:51 Primary Medical Doctor: [facility] HPI Patient who is a 39-year-old female who had gastric bypass surgery three months ago presents with a complaint of dizziness two days with a spinning sensation. States that they are also concerned about heart rate at rest around 55 beats per minute low for her. She also states she could be dehydrated history of hypertension psych obesity Medication Reconciliation Allergies: Coded Allergies: acetaminophen (Verified Allergy, Unknown, ITCHING, 12/17/24) hydrocodone (Verified Allergy, Unknown, ITCHING, 12/17/24) gabapentin (Verified Adverse Reaction, Unknown, TWITCHING, 12/17/24) Scheduled Clindamycin HCL* (Clindamycin HCL*), 1 CAP PO Q6H Sulfamethoxazole/Trimethoprim (Bactrim Ds Tablet), 1 TAB PO Q12H Scheduled PRN Albuterol Sulfate (Ventolin Hfa), 2 PUFFS INH Q4HPRN PRN for wheezing Past Medical History Past Medical History: No Pertinent History, *CARDIOVASCULAR*, Hypertension, Chronic Pain, Fibromyalgia, Anxiety, Bipolar Past Surgical History: Alcohol Use: None Drug Use: marijuana, methamphetamine, heroin Lives In: Home Review of Systems All Other Systems at this time: Reviewed and Negative ROS As stated above in the HPI, otherwise all systems are reviewed and negative. Physical Exam Vital Signs: Temperature: 96.9, Source: Temporal, Heart Rate: 75, Respiratory Rate: 18, BP: 187/104, Pulse Oximetry: 97, Weight: 142.100 Oxygen Flow Rate: 0 Physical Exam General: Alert, no apparent distress. HEENT: PERRL, EOMI, no injection, moist mucous membranes. Neck: Full range of motion. Respiratory: Lungs clear, no respiratory distress. Chest: No accessory muscle use. Cardiovascular: Regular rate and rhythm, no murmurs. Gastrointestinal: Soft, nontender, nondistended. Bowels sounds present. Extremities: Normal range of motion, no deformity. Neurologic: Oriented x4. Psychiatric: Normal mood and affect. Skin: Normal color, warm and dry. No edema, no ecchymosis. Progress Results/Orders Results/Orders Vital Signs 12/17/24 12/17/24 12/17/24 12/17/24 14:13 15:53 16:00 16:00 Temp 96.9 96.9 Pulse 75 63 Resp 18 14 14 B/P (MAP) 187/104 157/97 (117) Pulse Ox 97 95 97 O2 Delivery Room Air* O2 Flow Rate 0 0 0 FiO2 21 12/17/24 16:19 Temp 96.9 Pulse 57 Resp 19 B/P (MAP) 147/81 Pulse Ox 96 Laboratory Tests Test 12/17/24 14:26 12/17/24 15:45 White Blood Count 11.5 H Red Blood Count 4.88 Hemoglobin 14.0 Hematocrit 42.0 Mean Corpuscular Volume 86.2 Mean Corpuscular Hemoglobin 28.7 Mean Corpuscular Hemoglobin Concent 33.3 Red Cell Distribution Width 14.6 H Platelet Count 293 Mean Platelet Volume 7.6 Neutrophils (%) (Auto) 63.0 Lymphocytes (%) (Auto) 29.2 Monocytes (%) (Auto) 6.5 Eosinophils (%) (Auto) 0.8 Basophils (%) (Auto) 0.5 Neutrophils # (Auto) 7.3 Lymphocytes # (Auto) 3.4 Monocytes # (Auto) 0.7 Eosinophils # (Auto) 0.1 Basophils # (Auto) 0.1 CBC Comment Sodium Level 142 Potassium Level 3.9 Chloride Level 105 Carbon Dioxide Level 30.6 Anion Gap 6 L Blood Urea Nitrogen 12 Creatinine 0.56 Estimated GFR/1.73 m2 > 90 BUN/Creatinine Ratio 21.4 H Glucose Level 93 Calcium Level 9.5 Total Bilirubin 0.6 Aspartate Amino Transf (AST/SGOT) 20 Alanine Aminotransferase (ALT/SGPT) 24 Alkaline Phosphatase 72 Troponin I High Sensitivity 5 Pro-B-Type Natriuretic Peptide 245 H Total Protein 7.9 Albumin 3.6 Globulin 4.3 Albumin/Globulin Ratio 0.8 L Lipase 43 Chemistry Comments Urine Specimen Description Cln catch midstream Urine Color Yellow Urine Clarity Clear Urine pH 6.0 Urine Specific [place] 1.010 Urine Protein Negative Urine Glucose (UA) Negative Urine Ketones Trace H Urine Occult Blood Moderate H Urine Nitrite Negative Urine Bilirubin Negative Urine Urobilinogen 0.2 Urine Leukocyte Esterase Negative Urine RBC 3-10 Urine WBC 0-4 Urine Squamous Epithelial Cells Many Urine Transitional Epithelial Cells Few Urine Renal Cells Few Urine Bacteria 2+ Urine Mucus Few Urine Culture Indicated Not ind Volume Urine Centrifuged 10 ml Urine HCG, Qualitative Negative Urine Comment Medical Decision Making Findings Patient's laboratory values indicate a minor urinary tract infection this is likely a contributing factor to their dizziness He is hemodynamically stable and shows no signs focal deficits which would require further imaging to rule out intracranial bleeds in addition she has been evaluated for her palpitations in the outpatient setting as in this is a nonacute findings Starting her on outpatient antibiotics in the have her follow up with primary Differential Dx:Considerations: Include: anemia, CVA, dehydration, dysrhythmia, electrolyte imbalance, encephalopathy, Guillain-[place], hypoglycemia, hypotension, hypovolemia, labyrinthitis, Meniere's disease, myasathenia gravis, myocardial infarction, pulmonary embolus, renal failure, respiratory failure, TIA, VBI, vertigo central, vertigo peripheral, vestibular neuronitis, other Departure Disposition: HOME / SELF CARE / HOMELESS Impression: Primary Impression: UTI (urinary tract infection) Additional Impressions: Dizziness Vertigo Referrals: NO PRIMARY CARE PROVIDER (PCP) Prescriptions Sulfamethoxazole/Trimethoprim (Bactrim Ds Tablet) 800 Mg-160 Mg Tablet 1 TAB PO Q12H for 10 Days, #20 TAB Prov: NEAL BARRON NP 12/17/24 Signature Scribe Signature: d Attestation: Scribed for Neal Barron Logistics Tech by Neal Trent NP . 12/17/24 16:10 NEAL BARRON NP Dec 17, 2024 16:01
[2024-12-17 16:02] LABS: UA COLLECTION TYPE CLN CATCH MIDSTREAM
[2024-12-17 16:03] LABS: MUCUS STRANDS FEW /LPF (Neg); RENAL CELLS, URINE FEW /HPF; SQUAMOUS EPITHELIAL CELL,UR MANY /LPF (FEW)
[2024-12-17] MEDS ORDERED: SULF1TAB49 PO (16:10)
[2024-12-17 16:19] VITALS: BP 147/81; PULSE 57; RESP 19; TEMP 96.9; O2SAT 96
--- NOTE | 2024-12-18 16:47 | ELECTROCARDIOGRAPH REPORT ---
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 Brian Scherer Measurements Intervals [place] Rate: 68 P: 59 PA: 172 QRS: 18 QRSD: 95 T: 31 QT: 397 QTc: 423 Interpretive Statements Sinus rhythm Ventricular premature complex Low voltage, precordial leads Baseline wander in lead(s) I,V1,V2 Electronically Signed On 12-18-2024 17:26:[address] Brian Scherer Please click the below link to view image of tracing.
== END 2024-12-17 16:15 | disposition home or self-care (01) ==
LOC: ER 14:11
DX: N39.0 Urinary tract infection, site not specified (principal); R42 Dizziness and giddiness; F12.90 Cannabis use, unspecified, uncomplicated; F15.90 Other stimulant use, unspecified, uncomplicated; F11.90 Opioid use, unspecified, uncomplicated; Z88.5 Allergy status to narcotic agent; Z88.8 Allergy status to other drugs, medicaments and biological substances; Z79.899 Other long term (current) drug therapy
CPT/HCPCS: 36415; 71045; 80053; 81001; 81025; 83690; 83880; 84484; 85025; 93005; 99285

== ENCOUNTER 2025-04-04 11:17 | Emergency (ER) | payer MEDICAID ==
[~2025-04-04] VITALS: Ht 157.5 cm; Wt 131.0 kg
--- NOTE | 2025-04-04 11:33 | ELECTROCARDIOGRAPH REPORT ---
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 Brian Scherer Measurements Intervals [place] Rate: 70 P: 77 AR: 161 QRS: 59 QRSD: 103 T: 54 QT: 394 QTc: 426 Interpretive Statements Sinus rhythm Low voltage, precordial leads Electronically Signed On 04-04-2025 18:30:[address] Brian Scherer Please click the below link to view image of tracing.
[2025-04-04] MEDS: normal saline 1000ml 1,000 ML IV ONE (11:59)
[2025-04-04] MEDS: ketorolac trometh 15mg/ml vial 15 MG/ML ML IV ONE (12:02)
--- NOTE | 2025-04-04 13:17 | Physician Documentation ---
History of Present Illness ~ Chief Complaint: Flu Symptoms Stated Complaint: FLU SYMPTOMS Time Seen by MD: 11:34 Primary Medical Doctor: [facility] Mode of Arrival: Ambulatory HPI 39 year old female with several days of productive cough, headache, nasal congestion. Reports some wheezing and difficulty breathing with her home breathing treatment. Denies chest pain, fevers, N/V/D. Medication Reconciliation Allergies: Coded Allergies: acetaminophen (Verified Allergy, Unknown, ITCHING, 04/04/25) hydrocodone (Verified Allergy, Unknown, ITCHING, 04/04/25) gabapentin (Verified Adverse Reaction, Unknown, TWITCHING, 04/04/25) Scheduled Clindamycin HCL* (Clindamycin HCL*), 1 CAP PO Q6H Scheduled PRN Albuterol Sulfate (Ventolin Hfa), 2 PUFFS INH Q4HPRN PRN for wheezing Past Medical History Past Medical History: No Pertinent History, *CARDIOVASCULAR*, Hypertension, Chronic Pain, Fibromyalgia, Anxiety, Bipolar Past Surgical History: Alcohol Use: None Drug Use: marijuana, methamphetamine, heroin Lives In: Home Review of Systems All Other Systems at this time: Reviewed and Negative Physical Exam Vital Signs: RN Vital Signs have been reviewed: Yes, Temperature: 96.8, Source: Oral, Heart Rate: 70, Respiratory Rate: 12, BP: 170/105, Pulse Oximetry: 96, Weight: 131.000 Oxygen Flow Rate: 0 Physical Exam Gen: no distress HEENT: PERRL, EOMI Pulm: coughing, mild rhonchi throughout CV: deferred Abd: deferred MSK: no deformity Skin: w/d/i Neuro: nonfocal Psych: unremarkable Progress Results/Orders Results/Orders Orders - CARYN ZAYAS MD Ipratropium/Albuterol Nebule (Ipratrop/A (04/04/25 12:40) Acetaminophen 325mg Tablet (Tylenol Tabl (04/04/25 13:15) Completed Orders - CARYN ZAYAS MD Electrocardiogram (04/04/25 ) Normal Saline 1000ml (0.9% Sodium Chlori (04/04/25 11:40) Ketorolac Trometh 15mg/Ml Vial (Toradol (04/04/25 11:40) Medications Received in ER Medications (Trade) Dose Ordered Sig/Stephon Route PRN Reason Start Time Stop Time Status Last Admin Dose Admin Sodium Chloride 1,000 ml @ 1,000 mls/hr ONCE ONCE IV 04/04/25 11:40 04/04/25 12:39 DC 04/04/25 11:59 1,000 MLS/HR (Toradol injection) 30 mg ONCE ONCE IV 04/04/25 11:40 04/04/25 11:41 DC 04/04/25 12:02 30 MG Vital Signs 04/04/25 04/04/25 04/04/25 04/04/25 11:19 11:37 12:02 13:01 Temp 96.8 96.8 Pulse 75 70 Resp 18 20 12 B/P (MAP) 186/108 170/105 (126) Pulse Ox 95 96 O2 Flow Rate 0 0 Medical Decision Making Additional information obtaine: N/A Findings 39 year old female with likely viral URI and headache, with history of chronic headaches. Meds, fluids, breathing treatment, improved, discharged with return precautions. Differential Dx:Considerations: Include: Influenza, Pharyngitis-Viral, Pneumonia, Pnuemonitis, Sinusitis, URI Departure Disposition: HOME / SELF CARE / HOMELESS Impression: Primary Impression: Upper respiratory infection Condition: Stable Discharge Instructions: Viral Illness Referrals: NO PRIMARY CARE PROVIDER (PCP) Education Educated: Patient Educated regarding: diagnosis, treatment, prognosis, need for follow up Signature Scribe Signature: . Attestation: . CARYN ZAYAS MD Apr 04, 2025 13:17
[2025-04-04 13:22] VITALS: PULSE 74; RESP 18; O2SAT 96
[2025-04-04] MEDS: ipratropium/albuterol 3ml nebule NEB PRN (13:22)
[2025-04-04 13:32] VITALS: PULSE 77; RESP 18; O2SAT 98
[2025-04-04 13:56] VITALS: BP 143/88; PULSE 66; RESP 12; TEMP 96.8; O2SAT 96
== END 2025-04-04 13:58 | disposition home or self-care (01) ==
LOC: ER 11:18
DX: F12.90 Cannabis use, unspecified, uncomplicated (principal); J06.9 Acute upper respiratory infection, unspecified; F15.90 Other stimulant use, unspecified, uncomplicated; F11.90 Opioid use, unspecified, uncomplicated; F41.9 Anxiety disorder, unspecified; F31.9 Bipolar disorder, unspecified; I10 Essential (primary) hypertension; G89.29 Other chronic pain; M79.7 Fibromyalgia; Z88.8 Allergy status to other drugs, medicaments and biological substances; Z88.5 Allergy status to narcotic agent; Z98.890 Other specified postprocedural states
CPT/HCPCS: 93005; 94640; 96361; 96374; 99283; J1885; J7030; 94760